=== PATIENT | male | born 1965 | race African-American/Black ===

== ENCOUNTER 2023-06-03 02:11 | Emergency (ER) | payer SELFPAY ==
[~2023-06-03] VITALS: Ht 172.7 cm; Wt 60.0 kg
[2023-06-03 02:13] VITALS: BP 185/68; PULSE 102; RESP 16; TEMP 98.2; O2SAT 98
== END 2023-06-03 03:31 | disposition home or self-care (01) ==
LOC: ER 02:11 → EDBD 02:11 → ER 03:31
DX: F10.129 Alcohol abuse with intoxication, unspecified (principal); Y90.9 Presence of alcohol in blood, level not specified
CPT/HCPCS: 99283